=== PATIENT | female | born 1965 | race Caucasian/White ===

== ENCOUNTER 2017-03-25 19:58 | Emergency (ER) | payer BC ==
[~2017-03-25] VITALS: Ht 172.7 cm; Wt 67.0 kg
[2017-03-25 20:00] VITALS: BP 123/75; PULSE 88; RESP 16; TEMP 98.5; O2SAT 98
[2017-03-25 20:30] VITALS: RESP 20; O2SAT 97
[2017-03-25] MEDS ORDERED: SODIUM CHLORIDE 0.9% FLUSH 10 ML FLUSH IV FLUSH PRN (20:30)
[2017-03-25] MEDS ORDERED: ONDANSETRON HCL 4 MG/2 ML VIAL IVP ONE (20:30)
[2017-03-25] MEDS ORDERED: MORPHINE SULFATE 4 MG/ML INJ IV PUSH ONE (20:30)
--- NOTE | 2017-03-25 20:30 | PD ---
HPI Chief Complaint: GI Complaint Time Seen by Provider: 20:17 Travel History International Travel<30 days: No Contact w/Intl Traveler<30days: No Traveled to known affect area: No History of Present Illness HPI Patient is a 51-year-old female who presents emergency department with complaint of abdominal pain. A telephone logistics program manager was used for the ED encounter. Patient states that yesterday her and her went out to eat. Shortly thereafter after returning home he began to have symptoms of nausea vomiting diarrhea and abdominal pain. Approximate 2 hours later she began to have symptoms. States of the abdominal pain is primarily epigastric, burning in sensation. 2 episodes of emesis, no hematemesis. 8 episodes of diarrhea, no hematochezia. No fevers or chills. PFSH Past Medical History Depression: Yes Diabetes: Yes (Pre-Diabetic) Patient Takes Glucophage: No Diminished Hearing: No Gastrointestinal Disorders: Yes (Hernia) Tetanus Vaccination: Unknown ?: Not Past Surgical History Genitourinary Surgery: Yes (bladder surgery) Hysterectomy: Yes Social History Alcohol Use: No Tobacco Use: No Substance Use: No Allergies-Medications (Allergen,Severity, Reaction): Coded Allergies: No Known Allergies (Unverified , 03/25/17) Review of Systems Except as stated in HPI: all other systems reviewed are Neg Physical Exam Narrative GENERAL: Well-appearing female in no acute distress SKIN: Focused skin assessment warm/dry. HEAD: Normocephalic. EYES: No scleral icterus. No injection or drainage. ENT: Mucous membranes pink and moist. NECK: Supple CARDIOVASCULAR: Regular rate and rhythm. No murmur appreciated. RESPIRATORY: No accessory muscle use. Clear to auscultation. Breath sounds equal bilaterally. GASTROINTESTINAL: Abdomen soft, minimal epigastric tenderness to palpation without rebound or guarding MUSCULOSKELETAL: Normal gait NEUROLOGICAL: Awake and alert. Motor grossly within normal limits. Normal speech. PSYCHIATRIC: Appropriate mood and affect; insight and judgment normal. Data Data Last Documented VS Vital Signs Date Time Temp Pulse Resp B/P Pulse Ox O2 Delivery O2 Flow Rate FiO2 03/25/17 20:30 20 97 Room Air 03/25/17 20:00 98.5 88 123/75 Orders Complete Blood Count With Diff (03/25/17 20:25) Comprehensive Metabolic Panel (03/25/17 20:25) Lipase (03/25/17 20:25) Iv Access Insert/Monitor (03/25/17 20:25) Ecg Monitoring (03/25/17 20:25) Oximetry (03/25/17 20:25) Morphine Inj (Morphine Inj) (03/25/17 20:30) Ondansetron Inj (Zofran Inj) (03/25/17 20:30) Sodium Chloride 0.9% Flush (Ns Flush) (03/25/17 20:30) Sodium Chlor 0.9% 1000 Ml Inj (Ns 1000 M (03/25/17 21:00) Labs Laboratory Tests Test 03/25/17 19:35 White Blood Count 8.8 TH/MM3 Red Blood Count 4.56 MIL/MM3 Hemoglobin 12.6 GM/DL Hematocrit 38.6 % Mean Corpuscular Volume 84.6 FL Mean Corpuscular Hemoglobin 27.6 PG Mean Corpuscular Hemoglobin 32.6 % Concent Red Cell Distribution Width 13.8 % Platelet Count 339 TH/MM3 Mean Platelet Volume 8.5 FL Neutrophils (%) (Auto) 78.8 % Lymphocytes (%) (Auto) 13.0 % Monocytes (%) (Auto) 7.4 % Eosinophils (%) (Auto) 0.4 % Basophils (%) (Auto) 0.4 % Neutrophils # (Auto) 7.0 TH/MM3 Lymphocytes # (Auto) 1.1 TH/MM3 Monocytes # (Auto) 0.7 TH/MM3 Eosinophils # (Auto) 0.0 TH/MM3 Basophils # (Auto) 0.0 TH/MM3 CBC Comment DIFF FINAL Differential Comment Sodium Level 139 MEQ/L Potassium Level 3.8 MEQ/L Chloride Level 104 MEQ/L Carbon Dioxide Level 26.8 MEQ/L Anion Gap 8 MEQ/L Blood Urea Nitrogen 17 MG/DL Creatinine 0.86 MG/DL Estimat Glomerular Filtration 70 ML/MIN Rate Random Glucose 150 MG/DL Calcium Level 9.0 MG/DL Total Bilirubin 0.3 MG/DL Aspartate Amino Transf 19 U/L (AST/SGOT) Alanine Aminotransferase 32 U/L (ALT/SGPT) Alkaline Phosphatase 100 U/L Total Protein 8.5 GM/DL Albumin 3.9 GM/DL Lipase 136 U/L MDM Medical Decision Making Medical Screen Exam Complete: Yes Emergency Medical Condition: Yes Medical Record Reviewed: Yes Differential Diagnosis 51-year-old female here with complaint of epigastric abdominal discomfort, nausea vomiting diarrhea since yesterday after eating out. ill with similar symptoms. Differential includes food poisoning, gastroenteritis, gastritis, pancreatitis, hepatobiliary pathology. Narrative Course Patient placed on monitor, IV established and blood obtained. Given 4 mg morphine, 4 mg Zofran. CBC, BMP, lipase were obtained and unremarkable. Able to tolerate oral fluids, d/c to home with sx mgmt. Diagnosis Primary Impression: Gastroenteritis Additional Impression: Nausea vomiting and diarrhea Referrals: Primary Care Physician as needed Med/Other Pt SpecificInfo: Prescription(s) given Scripts Ondansetron Odt (Zofran Odt)8 Mg Tab8 Mg SL Q8H PRN (NAUSEA OR VOMITING) #10 TAB Ref 0 Prov:Katerina Meeks MD 03/25/17 Loperamide (Imodium A-D)2 Mg Tab4 Mg PO DIRECTED PRN (DIARRHEA) #18 TAB Ref 0 One tablet after each loose stool. Not to exceed 8 tablets per day. Prov:Katerina Meeks MD 03/25/17 Disposition: 01 DISCHARGE HOME Condition: Stable Katerina Meeks MD March 25, 2017 20:30
[2017-03-25 20:57] LABS: BASOPHIL % 0.4 % (0.0-2.0); EOSINOPHIL % 0.4 % (0.0-4.0); HEMATOCRIT 38.6 % (35.0-46.0); HEMO FLAGS DIFF FINAL; LYMPHOCYTE # 1.1 TH/MM3 (1.0-4.8); MEAN CELL VOLUME 84.6 FL (80.0-100.0); MEAN CORPUSCULAR HEMOGLOBIN 27.6 PG (27.0-34.0); MEAN CORPUSCULAR HGB CONC 32.6 % (32.0-36.0); MONO % 7.4 % (0.0-8.0); NEUT % 78.8 % (16.0-70.0); PLATELET COUNT 339 TH/MM3 (150-450); RED BLOOD COUNT 4.56 MIL/MM3 (4.00-5.30); RED CELL DISTRIBUTION WIDTH 13.8 % (11.6-17.2); WHITE BLOOD COUNT 8.8 TH/MM3 (4.0-11.0)
[2017-03-25] MEDS ORDERED: SODIUM CHLOR 0.9% 1000 ML INJ 1,000 ML IV ONE (21:00)
[2017-03-25 21:25] LABS: ANION GAP 8 MEQ/L (5-15); AST (GOT) 19 U/L (15-37); BICARBONATE 26.8 MEQ/L (21.0-32.0); BLOOD UREA NITROGEN 17 MG/DL (7-18); CHLORIDE 104 MEQ/L (98-107); GLOMERULAR FILTRATION RATE 70 ML/MIN (>89); POTASSIUM 3.8 MEQ/L (3.5-5.1); SODIUM (NA) 139 MEQ/L (136-145)
[2017-03-25 21:28] LABS: ALKALINE PHOSPHATASE 100 U/L (45-117); ALT (GPT) 32 U/L (10-53); TOTAL BILIRUBIN ADULT 0.3 MG/DL (0.2-1.0)
[2017-03-25] MEDS ORDERED: ZOFR8TAB4 SL (21:31)
[2017-03-25] MEDS ORDERED: IMOD2TAB3 PO (21:31)
[2017-03-25 22:26] VITALS: RESP 16
== END 2017-03-25 22:29 | disposition home or self-care (01) ==
LOC: NEPE 19:58
DX: K52.9 Noninfective gastroenteritis and colitis, unspecified (principal); R11.2 Nausea with vomiting, unspecified; R19.7 Diarrhea, unspecified; R73.03 Prediabetes; Z86.59 Personal history of other mental and behavioral disorders; Z87.19 Personal history of other diseases of the digestive system
CPT/HCPCS: 80053; 83690; 85025; 96374; 96375; 99284; J2270; J2405; J7030